=== PATIENT | female | born 1965 | race Two or more races ===

== ENCOUNTER 2018-12-07 17:52 | Emergency (ER) | payer OTHER ==
[~2018-12-07] VITALS: Ht 157.5 cm; Wt 102.5 kg
[~2018-12-07 17:52] MED LIST: ALBU90I INH; ALBU90OI INH; ALPR.5 PO; ALPR1 PO; AMOCLA875 PO; ANTOXYBENA RIGHTEAR; ASPI81EC; ATEN25 PO; BENZ100A PO; BP MED; BUDE10.22; BUPR150ER PO; BUPR150T2 PO; CLON2; CONEST.625; DIAZ5 PO; DIPH50 PO; ESTRTP VAG; FLUO10 PO; FLUO20 PO; FLUT.05NI; FURO40; FURO40 PO; GABA300 PO; GABA600 PO; HYDACE10B PO; HYDACE5; HYDACE5 PO; HYDMOR2 PO; HYDMOR4 PO; HYDPAM25 PO; HYOS.125 SL; IBUP800 PO; LAVAP4L PO; LEVSOD100 PO; LEVSOD150; LEVSOD150 PO; LORA.5; LORA.5 PO; LORA1; LORA1 PO; LORA2 PO; MECL25 PO; METH10; METH10 PO; METH1EL PO; METH40; METH40 PO; METH5 PO; METR250 PO; METR500 PO; Morphine Sulfat30 M1 PO; NAPR500 PO; Norco 5-325 Ta1 EACH PO; ONDA4 PO; ONDA8ODT MM; OXYACE10 PO; OXYACE5T PO; OXYC10ER; OXYC10ER PO; OXYC10TA19 PO; OXYC1TAB11 PO; OXYC30 PO; OXYC5; POLY17UD; POLY17UD PO; PRAZ2; PRED20 PO; PROC10 PO; PROM25 PO; PSEU120ER PO; Percocet PO; QUET25; RXLORA1 PO; RXONDA4ODT MM; RXOXYACE PO; SENNP; SEROQUEL 50 MG; SULTRIDS PO; VENL25; VENL75; VENL75ER PO; Zofran8 MG PO; [UNRECOGNIZED DRUG - REMARK]; [UNRECOGNIZED DRUG - REMARK]
[2018-12-07] MEDS ORDERED: TYLECOD3 PO (20:19)
== END 2018-12-07 20:42 | disposition home or self-care (01) ==
LOC: ER 17:52
DX: S93.402A Sprain of unspecified ligament of left ankle, initial encounter (principal); S93.401A Sprain of unspecified ligament of right ankle, initial encounter; W10.9XXA Fall (on) (from) unspecified stairs and steps, initial encounter; Z88.8 Allergy status to other drugs, medicaments and biological substances; Z91.040 Latex allergy status; Z79.899 Other long term (current) drug therapy; F32.9 Major depressive disorder, single episode, unspecified; F43.10 Post-traumatic stress disorder, unspecified; F17.210 Nicotine dependence, cigarettes, uncomplicated
CPT/HCPCS: 29515; 73610; 73630; 99283-25; A9270-GY

== ENCOUNTER 2018-12-09 12:08 | Emergency (ER) | payer OTHER ==
[~2018-12-09] VITALS: Ht 157.5 cm; Wt 104.3 kg
[~2018-12-09 12:08] MED LIST changes: +TYLECOD3 PO
[2018-12-09] MEDS ORDERED: TYLECOD3 PO (12:31)
[2018-12-09] MEDS ORDERED: CRUTCH2 XX (13:04)
== END 2018-12-09 13:10 | disposition home or self-care (01) ==
LOC: ER 12:08
DX: S92.352D Displaced fracture of fifth metatarsal bone, left foot, subsequent encounter for fracture with routine healing (principal); X58.XXXD Exposure to other specified factors, subsequent encounter; Z91.040 Latex allergy status; Z88.8 Allergy status to other drugs, medicaments and biological substances; Z79.899 Other long term (current) drug therapy; F32.9 Major depressive disorder, single episode, unspecified; F43.10 Post-traumatic stress disorder, unspecified; F17.210 Nicotine dependence, cigarettes, uncomplicated
CPT/HCPCS: 99282

== ENCOUNTER 2019-03-31 10:09 | Emergency (ER) | payer OTHER ==
[~2019-03-31] VITALS: Ht 157.5 cm; Wt 83.9 kg
[~2019-03-31 10:09] MED LIST changes: +CRUTCH2 XX
[2019-03-31] MEDS ORDERED: IBUP800 PO (10:51)
[2019-03-31] MEDS ORDERED: Amoxicillin500 MG PO (10:51)
[2019-03-31] MEDS ORDERED: NYST237S MT (10:51)
[2019-03-31] MEDS ORDERED: FLUO10 PO (10:55)
== END 2019-03-31 11:07 | disposition home or self-care (01) ==
LOC: ER 10:09
DX: K02.9 Dental caries, unspecified (principal); F32.9 Major depressive disorder, single episode, unspecified; F43.10 Post-traumatic stress disorder, unspecified; F17.210 Nicotine dependence, cigarettes, uncomplicated; Z86.718 Personal history of other venous thrombosis and embolism; Z86.711 Personal history of pulmonary embolism; Z88.8 Allergy status to other drugs, medicaments and biological substances; Z91.040 Latex allergy status; Z79.899 Other long term (current) drug therapy
CPT/HCPCS: 96372; 99282-25; J1885

== ENCOUNTER 2019-10-10 16:01 | Emergency (ER) | payer OTHER ==
[~2019-10-10] VITALS: Ht 157.5 cm; Wt 78.9 kg
[~2019-10-10 16:01] MED LIST changes: +Amoxicillin500 MG PO; +NYST237S MT
[2019-10-10] MEDS ORDERED: Amoxicillin875 MG PO (16:20)
[2019-10-10] MEDS ORDERED: NYST237S MT (16:20)
== END 2019-10-10 16:57 | disposition home or self-care (01) ==
LOC: ER 16:01
DX: K04.7 Periapical abscess without sinus (principal); K02.9 Dental caries, unspecified; F32.9 Major depressive disorder, single episode, unspecified; Z88.8 Allergy status to other drugs, medicaments and biological substances; Z91.040 Latex allergy status; Z79.899 Other long term (current) drug therapy; Z79.51 Long term (current) use of inhaled steroids; Z86.718 Personal history of other venous thrombosis and embolism; Z86.711 Personal history of pulmonary embolism
CPT/HCPCS: 99282

== ENCOUNTER 2020-02-16 16:32 | Emergency (ER) | payer OTHER ==
[~2020-02-16] VITALS: Ht 167.6 cm; Wt 85.7 kg
[~2020-02-16 16:32] MED LIST changes: +Amoxicillin875 MG PO
[2020-02-16] MEDS ORDERED: KEFLEX500 MG PO (16:55)
== END 2020-02-16 17:07 | disposition home or self-care (01) ==
LOC: ER 16:32
DX: L03.211 Cellulitis of face (principal); R06.02 Shortness of breath; Z91.040 Latex allergy status; Z88.8 Allergy status to other drugs, medicaments and biological substances; Z79.899 Other long term (current) drug therapy; F32.9 Major depressive disorder, single episode, unspecified; F43.10 Post-traumatic stress disorder, unspecified; Z86.718 Personal history of other venous thrombosis and embolism; Z86.711 Personal history of pulmonary embolism
CPT/HCPCS: 99282

== ENCOUNTER 2020-02-21 13:05 | Emergency (ER) | payer OTHER ==
[~2020-02-21] VITALS: Ht 157.5 cm; Wt 84.8 kg
[~2020-02-21 13:05] MED LIST changes: +KEFLEX500 MG PO
== END 2020-02-21 16:44 | disposition left against medical advice (07) ==
LOC: ER 13:05
DX: Z53.21 Procedure and treatment not carried out due to patient leaving prior to being seen by health care provider (principal)

== ENCOUNTER 2020-11-01 09:01 | Emergency (ER) | payer OTHER ==
[~2020-11-01] VITALS: Ht 157.5 cm; Wt 81.7 kg
[~2020-11-01 09:01] MED LIST changes: -METH1EL PO; +METHADONE HCL10 M3 PO
[2020-11-01] MEDS ORDERED: LEVOTHYROXINE PO (11:00)
[2020-11-01 11:35] LABS: Source, Urine Catheter
[2020-11-01 11:37] LABS: Appearance, Urine Clear (Clear); Bilirubin, Urine Neg (Neg); Blood, Urine Neg (Neg); Color, Urine Yellow (P-Yellow); Glucose Qualitative, Urine Neg (Neg); Ketones, Urine Neg (Neg); Leukocyte Esterase, Urine Neg (Neg); Nitrite, Urine Neg (Neg); Protein, Urine Neg (Neg); Specific Gravity, Urine 1.005 (1.003-1.022); Urobilinogen, Urine NORM (Normal)
[2020-11-01 11:58] LABS: BASOPHILS ABSOLUTE AUTO 0.02 K/mm3 (0.00-0.23); BASOPHILS PERCENT AUTO 0 % (0-2); EOSINOPHILS PERCENT AUTO 0 % (0-6); Hematocrit 37.8 % (33.0-51.0); Hemoglobin 12.4 g/dL (11.5-16.0); IMMATURE GRAN ABSOLUTE AUTO 0.02 K/mm3 (0.00-0.10); IMMATURE GRAN PERCENT AUTO 0 % (0-1); LYMPHOCYTES ABSOLUTE AUTO 1.22 K/mm3 (0.84-5.20); LYMPHOCYTES PERCENT AUTO 18 % (21-46); MONOCYTES ABSOLUTE AUTO 0.21 K/mm3 (0.16-1.47); MONOCYTES PERCENT AUTO 3 % (4-13); Mean Corpuscular HGB 29.7 pg (26.0-34.0); Mean Corpuscular HGB Conc 32.8 g/dL (31.5-36.5); Mean Corpuscular Volume 91 fL (80-100); Mean Platelet Volume 8.7 fL (9.1-12.4); NEUTROPHILS ABSOLUTE AUTO 5.41 K/mm3 (1.96-9.15); NEUTROPHILS PERCENT AUTO 79 % (41-73); Platelet Count 246 K/mm3 (150-400); RDW Coefficient Variation 12.8 % (11.7-14.2); RDW Standard Deviation 42.4 fL (35.1-46.3); Red Blood Cell Count 4.17 M/mm3 (3.80-5.20); White Blood Cell Count 6.88 K/mm3 (4.00-11.30)
[2020-11-01 12:12] LABS: Alanine Aminotransfer (ALT/SGP 36 U/L (12-78); Albumin, Blood 3.7 g/dL (3.4-5.0); Albumin/Globulin Ratio 1.1 (0.8-1.8); Alk Phos 94 U/L (50-136); Anion Gap 4 mmol/L (6-16); Aspartate Aminotrans (AST/SGOT 28 U/L (12-37); Bilirubin, Total 0.3 mg/dL (0.1-1.0); Blood Urea Nitrogen 9 mg/dL (8-24); Bun/Creatinine Ratio 14.4 (12.0-20.0); CO2, Blood 30 mmol/L (21-32); Calcium, Blood 8.9 mg/dL (8.5-10.1); Chloride, Blood 104 mmol/L (98-108); Creatinine, Blood 0.63 mg/dL (0.40-1.00); Globulin, Blood 3.4 g/dL (2.2-4.0); Glomerular Filtration Rate >60 (60-); Glucose, Blood 109 mg/dL (70-99); Potassium, Blood 3.7 mmol/L (3.5-5.5); Sodium, Blood 138 mmol/L (136-145); Total Protein, Blood 7.1 g/dL (6.4-8.2)
== END 2020-11-01 14:39 | disposition home or self-care (01) ==
LOC: ER 09:01
PROVIDERS: Physician Assistant
DX: R33.9 Retention of urine, unspecified (principal); Z88.8 Allergy status to other drugs, medicaments and biological substances; Z91.040 Latex allergy status; Z79.899 Other long term (current) drug therapy
CPT/HCPCS: 36415; 51798; 80053; 81003; 85025; 96374; 99283-25; J2405; J7030

== ENCOUNTER 2020-11-22 07:17 | Emergency (ER) | payer OTHER ==
[~2020-11-22] VITALS: Ht 157.5 cm; Wt 81.7 kg
[~2020-11-22 07:17] MED LIST changes: +LEVOTHYROXINE PO
[2020-11-22 07:42] LABS: Source, Urine Clean Catch
[2020-11-22 07:48] LABS: Bilirubin, Urine Neg (Neg); Blood, Urine 2+ (Neg); Color, Urine Yellow (P-Yellow); Glucose Qualitative, Urine Neg (Neg); Ketones, Urine Neg (Neg); Leukocyte Esterase, Urine 1+ (Neg); Nitrite, Urine Pos (Neg); Protein, Urine Neg (Neg); Specific Gravity, Urine 1.025 (1.003-1.022); Urobilinogen, Urine NORM (Normal)
[2020-11-22 07:57] LABS: Appearance, Urine Hazy (Clear)
[2020-11-22 07:58] LABS: Bacteria Many /hpf; Mucus Mod (0-Heavy); Squamous Epithelial Cells Mod /hpf (Few)
[2020-11-22 08:36] LABS: BASOPHILS ABSOLUTE AUTO 0.02 K/mm3 (0.00-0.23); BASOPHILS PERCENT AUTO 0 % (0-2); EOSINOPHILS ABSOLUTE AUTO 0.06 K/mm3 (0.00-0.68); EOSINOPHILS PERCENT AUTO 1 % (0-6); Hematocrit 39.9 % (33.0-51.0); Hemoglobin 12.8 g/dL (11.5-16.0); IMMATURE GRAN ABSOLUTE AUTO 0.01 K/mm3 (0.00-0.10); IMMATURE GRAN PERCENT AUTO 0 % (0-1); LYMPHOCYTES ABSOLUTE AUTO 1.53 K/mm3 (0.84-5.20); LYMPHOCYTES PERCENT AUTO 29 % (21-46); MONOCYTES ABSOLUTE AUTO 0.43 K/mm3 (0.16-1.47); MONOCYTES PERCENT AUTO 8 % (4-13); Mean Corpuscular HGB 29.6 pg (26.0-34.0); Mean Corpuscular HGB Conc 32.1 g/dL (31.5-36.5); Mean Corpuscular Volume 92 fL (80-100); Mean Platelet Volume 8.4 fL (9.1-12.4); NEUTROPHILS PERCENT AUTO 62 % (41-73); Platelet Count 280 K/mm3 (150-400); RDW Coefficient Variation 12.8 % (11.7-14.2); RDW Standard Deviation 43.1 fL (35.1-46.3); Red Blood Cell Count 4.33 M/mm3 (3.80-5.20); White Blood Cell Count 5.35 K/mm3 (4.00-11.30)
[2020-11-22 08:53] LABS: Alanine Aminotransfer (ALT/SGP 30 U/L (12-78); Albumin, Blood 3.8 g/dL (3.4-5.0); Alk Phos 105 U/L (50-136); Anion Gap 2 mmol/L (6-16); Aspartate Aminotrans (AST/SGOT 21 U/L (12-37); Bilirubin, Total 0.3 mg/dL (0.1-1.0); Blood Urea Nitrogen 12 mg/dL (8-24); Bun/Creatinine Ratio 19.6 (12.0-20.0); CO2, Blood 31 mmol/L (21-32); Calcium, Blood 9.1 mg/dL (8.5-10.1); Chloride, Blood 105 mmol/L (98-108); Creatinine, Blood 0.61 mg/dL (0.40-1.00); Globulin, Blood 3.8 g/dL (2.2-4.0); Glomerular Filtration Rate >60 (60-); Glucose, Blood 104 mg/dL (70-99); Potassium, Blood 3.7 mmol/L (3.5-5.5); Sodium, Blood 138 mmol/L (136-145); Total Protein, Blood 7.6 g/dL (6.4-8.2)
[2020-11-22] MEDS ORDERED: CEFP200 PO (09:19)
== END 2020-11-22 10:00 | disposition home or self-care (01) ==
LOC: ER 07:17
PROVIDERS: Emergency Medicine
DX: N12 Tubulo-interstitial nephritis, not specified as acute or chronic (principal); E03.9 Hypothyroidism, unspecified; Z88.8 Allergy status to other drugs, medicaments and biological substances; Z91.040 Latex allergy status; Z86.718 Personal history of other venous thrombosis and embolism; Z79.899 Other long term (current) drug therapy
CPT/HCPCS: 36415; 76770; 80053; 81001; 85025; 87077; 87086; 87186; 96365; 96375; 99284-25; J0696; J1885; J7030

== ENCOUNTER 2021-11-23 09:16 | Emergency (ER) | payer OTHER ==
[~2021-11-23] VITALS: Ht 157.5 cm; Wt 89.8 kg
[~2021-11-23 09:16] MED LIST changes: +CEFP200 PO
[2021-11-23 10:25] LABS: BASOPHILS PERCENT AUTO 0 % (0-2); EOSINOPHILS PERCENT AUTO 0 % (0-6); Hematocrit 41.4 % (33.0-51.0); Hemoglobin 13.8 g/dL (11.5-16.0); IMMATURE GRAN ABSOLUTE AUTO 0.01 K/mm3 (0.00-0.10); IMMATURE GRAN PERCENT AUTO 0 % (0-1); LYMPHOCYTES PERCENT AUTO 16 % (21-46); MONOCYTES ABSOLUTE AUTO 0.24 K/mm3 (0.16-1.47); MONOCYTES PERCENT AUTO 6 % (4-13); Mean Corpuscular HGB 29.7 pg (26.0-34.0); Mean Corpuscular HGB Conc 33.3 g/dL (31.5-36.5); Mean Corpuscular Volume 89 fL (80-100); Mean Platelet Volume 8.6 fL (9.1-12.4); NEUTROPHILS ABSOLUTE AUTO 2.91 K/mm3 (1.96-9.15); NEUTROPHILS PERCENT AUTO 77 % (41-73); Platelet Count 223 K/mm3 (150-400); RDW Coefficient Variation 12.2 % (11.7-14.2); RDW Standard Deviation 40.3 fL (35.1-46.3); Red Blood Cell Count 4.64 M/mm3 (3.80-5.20); White Blood Cell Count 3.76 K/mm3 (4.00-11.30)
[2021-11-23 10:45] LABS: Albumin, Blood 3.2 g/dL (3.4-5.0); Albumin/Globulin Ratio 0.9 (0.8-1.8); Bilirubin, Total 0.3 mg/dL (0.1-1.0); Bun/Creatinine Ratio 12.9 (12.0-20.0); Calcium, Blood 8.7 mg/dL (8.5-10.1); Creatinine, Blood 0.62 mg/dL (0.40-1.00); Globulin, Blood 3.6 g/dL (2.2-4.0); Potassium, Blood 3.5 mmol/L (3.5-5.5); Total Protein, Blood 6.8 g/dL (6.4-8.2)
[2021-11-23] MEDS ORDERED: ESTRADIOL10 MCG VG (11:10)
[2021-11-23] MEDS ORDERED: DICY20 PO (13:29)
[2021-11-23] MEDS ORDERED: PROM25 PO (13:29)
== END 2021-11-23 13:42 | disposition home or self-care (01) ==
LOC: ER 09:16
PROVIDERS: Emergency Medicine
DX: R10.9 Unspecified abdominal pain (principal); R11.2 Nausea with vomiting, unspecified; Z95.828 Presence of other vascular implants and grafts
CPT/HCPCS: 36415; 74177; 76705; 80053; 83690; 85025; 96361; 96374; 96375; 99284-25; J1885; J2550; J7030; Q9967

== ENCOUNTER 2023-04-03 10:46 | Day surgery (SDC) | payer OTHER ==
[~2023-04-03] VITALS: Ht 170.2 cm; Wt 86.7 kg
[~2023-04-03 10:46] MED LIST changes: +DICY20 PO; +ESTRADIOL10 MCG VG
[2023-04-03] MEDS ORDERED: METH40 (11:23)
[2023-04-03 13:06] VITALS: BP 114/71
== END 2023-04-03 13:07 | disposition home or self-care (01) ==
LOC: ORSCSDS 10:46
PROVIDERS: Specialist
PROC: 0DJD8ZZ Inspection of Lower Intestinal Tract, Via Natural or Artificial Opening Endoscopic (ICD-10-PCS; principal; 2023-04-03 12:00)
PROC: 0DB78ZX Excision of Stomach, Pylorus, Via Natural or Artificial Opening Endoscopic, Diagnostic (ICD-10-PCS; principal; 2023-04-03 12:00)
PROC: 0D758ZZ Dilation of Esophagus, Via Natural or Artificial Opening Endoscopic (ICD-10-PCS; principal; 2023-04-03 12:00)
PROC: 0DB58ZX Excision of Esophagus, Via Natural or Artificial Opening Endoscopic, Diagnostic (ICD-10-PCS; principal; 2023-04-03 12:00)
DX: K21.9 Gastro-esophageal reflux disease without esophagitis (principal); R10.9 Unspecified abdominal pain; R13.10 Dysphagia, unspecified; K29.70 Gastritis, unspecified, without bleeding; Z12.11 Encounter for screening for malignant neoplasm of colon; Z86.010 Personal history of colon polyps; K44.9 Diaphragmatic hernia without obstruction or gangrene; K64.8 Other hemorrhoids; K57.30 Diverticulosis of large intestine without perforation or abscess without bleeding; I10 Essential (primary) hypertension; E03.9 Hypothyroidism, unspecified; Z87.891 Personal history of nicotine dependence; F41.8 Other specified anxiety disorders; Z79.899 Other long term (current) drug therapy
CPT/HCPCS: 88305; 88342; J2001; J2704; J7120

== ENCOUNTER 2023-10-15 08:55 | Day surgery (SDC) | payer OTHER ==
[~2023-10-15] VITALS: Ht 157.5 cm; Wt 86.2 kg
[~2023-10-15 08:55] MED LIST changes: +Balanced Salt Epinephrine Irrigation Solution 500 mL IR SCH; +Cyclobenzaprine5 MG; +EUTHYROX100 MC1 PO; +LEVOTHYROXINE125 MC9 PO; +Lidocaine HCl/Pf 1% 5 ML VIAL XX SCH; +Moxifloxacin HCL 0.5 MG/0.1 ML 0.4MLSYR LEFTEYE SCH; +NS 500 ML IV ONE; +NS 500 ML ONE; +PHENYLEPHRINE\\TROPICAMIDE\\TETRACAINE OPHTHALMIC DILATING SOLN LEFTEYE PRN; +PROZAC40 MG PO; +Povidone-Iodine 450 DROP/30 ML Solution LEFTEYE SCH; +Povidone-Iodine 450 DROP/30 ML Solution ONE; +VENL150ER PO
[2023-10-15] MEDS ORDERED: NS 500 ML IV ONE ×2 (09:42)
--- NOTE | 2023-10-15 09:43 | NUR ---
10/15/23 0943 Beatrice Fuller CALL LIGHT WITHIN REACH. TETRACAINE IN AT [phone] AND PLEDGETT IN AT [phone]
[2023-10-15] MEDS ORDERED: FentaNYL Citrate 50 MCG/ML 2 ML Injection ONE (09:54)
[2023-10-15] MEDS ORDERED: Midazolam HCl 1MG / ML 2ML Vial ONE (09:54)
[2023-10-15] MEDS ORDERED: Tetracaine HCl 0.5% Opth Soln 15 ml LEFTEYE ONE (10:23)
[2023-10-15 11:01] VITALS: BP 137/78
--- NOTE | 2023-10-15 11:05 | NUR ---
10/15/23 1105 MARY MARVIN PT EYE DISCOMFORT TOLLERABLE PER PT 06/26. PT DECLINED OFFER FOR TYLENOL PO 1X. END NOTE RDS.
--- NOTE | 2023-10-15 14:49 | NUR ---
10/15/23 1449 Karin Masters SURGICAL SITE PREPPED BY MARYANN ROD, APPLIANCE SERVICER TRAVELER
== END 2023-10-15 11:00 | disposition home or self-care (01) ==
LOC: ORSCSDS 08:55
PROVIDERS: Student in an Organized Health Care Education/Training Program
PROC: 08RK3JZ Replacement of Left Lens with Synthetic Substitute, Percutaneous Approach (ICD-10-PCS; principal; 2023-10-15 10:30)
DX: H25.12 Age-related nuclear cataract, left eye (principal); Z96.1 Presence of intraocular lens; F41.9 Anxiety disorder, unspecified; I10 Essential (primary) hypertension; F32.A Depression, unspecified; K21.9 Gastro-esophageal reflux disease without esophagitis; E03.9 Hypothyroidism, unspecified; Z87.891 Personal history of nicotine dependence; F43.10 Post-traumatic stress disorder, unspecified; E66.9 Obesity, unspecified; Z68.34 Body mass index [BMI] 34.0-34.9, adult; Z79.899 Other long term (current) drug therapy
CPT/HCPCS: J2250; J3010; J7040; V2632